=== PATIENT | male | born 1955 | race Caucasian/White ===

== ENCOUNTER 2017-03-17 09:32 | Emergency (ER) | payer BC ==
[2017-03-17 10:34] VITALS: BP 136/82
--- NOTE | 2017-03-17 11:22 | EDM.PDOC ---
[id number] Complaint: L WRIST INJURY Time Seen by Provider: 03/17/17 10:40 Source of Information: Reports: Patient, Family History Limitations: Reports: No Limitations - History of Present Illness INITIAL COMMENTS - FREE TEXT/NARRATIVE: pt fell last nite and landed on the left out spread hand, He has pain at the wrist level Onset: Today Duration: Hour(s): Location: Reports: Upper Extremity, Left Associated Symptoms: Reports: No Other Symptoms Left Wrist Pain Score (Numeric/FACES): 8 - Related Data Allergies Allergy/AdvReac Type Severity Reaction Status Date / Time No Known Allergies Allergy Verified 03/17/17 10:43 Home Meds: Home Meds Carvedilol [Coreg] 12.5 mg PO DAILY 03/17/17 [History] Hydrochlorothiazide 12.5 mg PO DAILY 03/17/17 [History] Simvastatin [Zocor] 40 mg PO BEDTIME 03/17/17 [History] Past Medical History Cardiovascular History: Reports: High Cholesterol, Hypertension Musculoskeletal History: Reports: Osteoarthritis Social & Family History - Tobacco Use Smoking Status *Q: Former Smoker Years of Tobacco use: 30 Used Tobacco, but Quit: No Second Hand Smoke Exposure: No - Caffeine Use Caffeine Use: Reports: Coffee - Alcohol Use Days Per Week of Alcohol Use: 7 Number of Drinks Per Day: 9 Total Drinks Per Week: 63 Date of Last Drink: 03/16/17 Time of Last Drink: 10:00 - Recreational Drug Use Recreational Drug Use: No Review of Systems - Review of Systems Review Of Systems: See Below Constitutional: Reports: No Symptoms Ears: Reports: No Symptoms Nose: Reports: No Symptoms Mouth/Throat: Reports: No Symptoms Respiratory: Reports: No Symptoms Cardiovascular: Reports: No Symptoms GI/Abdominal: Reports: No Symptoms Genitourinary: Reports: No Symptoms Musculoskeletal: Reports: Other (pain in left wrist) ED EXAM, GENERAL - Physical Exam Exam: See Below Free Text/Narrative:: pt arrived with pain in left wrisr. Exam Limited By: No Limitations General Appearance: Alert, Anxious Extremities: Other (pt has swelling at the left wrist level. ) Neurological: Alert, Oriented Psychiatric: Normal Affect Course - Vital Signs Last Recorded V/S: Last Vital Signs Temp 36.8 C 03/17/17 10:33 Pulse 82 03/17/17 10:33 Resp 16 03/17/17 10:33 BP 136/82 03/17/17 10:33 Pulse Ox 94 L 03/17/17 10:33 - Orders/Labs/Meds Meds: Medications Discontinued Medications Generic Name Dose Route Start Last Admin Trade Name Raudel PRN Reason Stop Dose Admin Hydrocodone Bitart/Acetaminophen 1 tab 03/17/17 11:35 03/17/17 11:55 [place] 325-5 Mg PO 03/17/17 11:36 1 tab ONETIME ONE Administration - Re-Assessments/Exams Free Text/Narrative Re-Assessment/Exam: 03/17/17 11:27 xrays were obtained which reveals a undisplaced fracture of the distal radius. A short arm splint was applied Departure - Departure Time of Disposition: 11:19 Disposition: Home, Self-Care 01 Condition: Fair Clinical Impression: Fracture of distal end of radius - Discharge Information Instructions: Wrist Fracture Treated With Immobilization Referrals: PCP,None [Primary Care Provider] - Forms: ED Department Discharge Care Plan Goals: norco splinted, elevate arm, cool pack over the splint, see ortho near [place] the first of the week for a cast and evaluation, norco 5/32 q6h, motrin 600mg tid with food.
[2017-03-17] MEDS ORDERED: Acetaminophen/HYDROcodone 325-5 MG Tab PO ONE (11:35)
--- NOTE | 2017-03-19 11:04 | CR ---
Wrist Comp Min 3V Lt HISTORY: Trauma COMPARISON: None FINDINGS: Fracture of the distal radius centrally and towards the radial styloid. Carpal bones appea r intact. There is mild displacement.
== END 2017-03-17 11:57 | disposition home or self-care (01) ==
LOC: JP.ED 09:32
DX: S52.502A Unspecified fracture of the lower end of left radius, initial encounter for closed fracture (principal); E78.00 Pure hypercholesterolemia, unspecified; I10 Essential (primary) hypertension; M19.90 Unspecified osteoarthritis, unspecified site; Z87.891 Personal history of nicotine dependence; W19.XXXA Unspecified fall, initial encounter; Z79.899 Other long term (current) drug therapy
CPT/HCPCS: 29125; 73110; 99284; A9270